=== PATIENT | female | born 1995 | race Caucasian/White ===

== ENCOUNTER 2017-04-02 13:59 | Emergency (ER) | payer MEDICAID ==
[~2017-04-02] VITALS: Ht 174 cm; Wt 89.0 kg
[~2017-04-02 13:59] MED LIST: DOCU-131 PO; IBUP200T48 PO; NORE0.3515 PO; ONDA4TAB7 PO; PNV1TABL11 PO
[2017-04-02 15:35] VITALS: BP 107/63
== END 2017-04-02 15:50 | disposition home or self-care (01) ==
LOC: ED 15:30
DX: O03.9 Complete or unspecified spontaneous abortion without complication (principal); O26.891 Other specified pregnancy related conditions, first trimester; N92.1 Excessive and frequent menstruation with irregular cycle; Z3A.08 8 weeks gestation of pregnancy
CPT/HCPCS: 36415; 76801; 81003; 84702; 86901; 99285

== ENCOUNTER 2018-04-23 21:14 | Emergency (ER) | payer MEDICAID ==
[~2018-04-23] VITALS: Ht 172.7 cm; Wt 84.0 kg
[~2018-04-23 21:14] MED LIST changes: -IBUP200T48 PO; +IBUP200T49 PO
[2018-04-23] MEDS ORDERED: ONDANSETRON ODT 4 MG ONE (21:43)
[2018-04-23] MEDS ORDERED: MAALOX/HYOSCYAMINE/LIDOCAINE 45 ML BTL ONE (21:44)
[2018-04-23] MEDS ORDERED: IBUPROFEN 200 MG TABLET ONE (21:44)
[2018-04-23] MEDS ORDERED: IBUPROFEN 200 MG TABLET PO ONE (22:00)
[2018-04-23] MEDS ORDERED: MAALOX/HYOSCYAMINE/LIDOCAINE 45 ML BTL PO ONE (22:00)
[2018-04-23] MEDS ORDERED: ONDANSETRON ODT 4 MG PO ONE (22:00)
[2018-04-23 22:32] LABS: BASOPHILS # (AUTO) 0.03 x10^3/uL (0-0.1); BASOPHILS % (AUTO) 0 % (0-1); EOSINOPHILS # (AUTO) 0.15 x10^3/uL (0-0.4); EOSINOPHILS % (AUTO) 2 % (1-7); LYMPHOCYTES # (AUTO) 3.31 x10^3/uL (1-3.4); LYMPHOCYTES % (AUTO) 34 % (22-44); MD NO; MEAN CORPUSCULAR HEMOGLOBIN 32.1 pg (27.0-34.8); MEAN CORPUSCULAR HGB CONC 34.2 g/dL (32.4-35.8); MEAN CORPUSCULAR VOLUME 93.7 fL (80-100); MEAN PLATELET VOLUME 8.7 fL (7.4-10.4); MONOCYTES # (AUTO) 0.47 x10^3/uL (0.2-0.8); MONOCYTES % (AUTO) 5 % (2-9); NEUTROPHILS % (AUTO) 59 % (42-75); PLATELET COUNT 267 x10^3/uL (130-400); RED BLOOD COUNT 4.12 x10^6/uL (3.82-5.3)
[2018-04-23 22:37] VITALS: BP 105/66
[2018-04-23 22:43] LABS: ALBUMIN 3.7 g/dL (3.4-5.0); ANION GAP 9 mmol/L (5-15); CALCIUM 9.1 mg/dL (8.5-10.1); CHLORIDE 106 mmol/L (98-107); CREATININE 0.74 mg/dL (0.55-1.02)
[2018-04-23 22:47] LABS: TROPONIN I < 0.015 ng/mL (0.000-0.045)
== END 2018-04-23 23:34 | disposition home or self-care (01) ==
LOC: ED 23:26
DX: R07.89 Other chest pain (principal); F41.1 Generalized anxiety disorder; R06.4 Hyperventilation; Z88.0 Allergy status to penicillin; Z91.013 Allergy to seafood
CPT/HCPCS: 36415; 71045; 80048; 82040; 83880; 84484; 84703; 85025; 93005; 99285; Q0162

== ENCOUNTER 2019-05-20 11:28 | Emergency (ER) | payer MEDICAID, OTHER ==
[~2019-05-20] VITALS: Ht 172.7 cm; Wt 74.7 kg
[2019-05-20 11:36] VITALS: BP 109/74
[2019-05-20] MEDS ORDERED: KETOROLAC 30 MG/1 ML ONE (12:06)
[2019-05-20] MEDS ORDERED: KETOROLAC 30 MG/1 ML IM ONE (12:30)
== END 2019-05-20 13:12 | disposition home or self-care (01) ==
LOC: ED 13:00
DX: S39.012A Strain of muscle, fascia and tendon of lower back, initial encounter (principal); G89.11 Acute pain due to trauma; R07.89 Other chest pain; V49.09XA Driver injured in collision with other motor vehicles in nontraffic accident, initial encounter; Y93.89 Activity, other specified; Y92.89 Other specified places as the place of occurrence of the external cause; Y99.8 Other external cause status
CPT/HCPCS: 72110; 96372; 99283; J1885

== ENCOUNTER 2020-07-20 18:57 | Emergency (ER) | payer MEDICAID, OTHER ==
[~2020-07-20] VITALS: Ht 172.7 cm; Wt 80.4 kg
[2020-07-20 19:01] VITALS: BP 108/87
[2020-07-20] MEDS ORDERED: LIDOCAINE-MPF 1%, 5ML ONE (19:22)
[2020-07-20] MEDS ORDERED: BUPIVACAINE 0.25% ONE (20:05)
[2020-07-20] MEDS ORDERED: NEOSPORIN OINT. PKT 1 PACKET ONE (21:19)
== END 2020-07-20 20:00 | disposition home or self-care (01) ==
LOC: ED 19:39
DX: S61.306A Unspecified open wound of right little finger with damage to nail, initial encounter (principal); G89.11 Acute pain due to trauma; M79.641 Pain in right hand; X58.XXXA Exposure to other specified factors, initial encounter; Y93.89 Activity, other specified; Y92.89 Other specified places as the place of occurrence of the external cause; Y99.8 Other external cause status
CPT/HCPCS: 11730; 99284

== ENCOUNTER 2020-10-18 11:33 | Emergency (ER) | payer MEDICAID ==
[~2020-10-18] VITALS: Ht 172.7 cm; Wt 79.0 kg
--- NOTE | 2020-10-18 12:02 | NUR ---
EPIGASTRIC ABD PAIN STARTING LAST NIGHT. DIZZINESS UPON STANDING. AT BEDSIDE. PT ATTACHED TO ALL MONITORS. VSS. LIMON.
--- NOTE | 2020-10-18 12:10 | NUR ---
DR. ODOM TO BEDSIDE FOR EVALUATION. PT BACK FROM BATHROOM WITH SLOW STEADY GAIT ASSISTED BY TECH AND . PT REPORTS DIZZINESS WHEN AMBULATION. ATTACHED TO MONITORS. VSS.
[2020-10-18 12:47] LABS: MICROSCOPIC NOT IND
[2020-10-18] MEDS ORDERED: MAALOX/HYOSCYAMINE/LIDOCAINE 45 ML BTL PO ONE (13:00)
[2020-10-18] MEDS ORDERED: MAALOX/HYOSCYAMINE/LIDOCAINE 45 ML BTL ONE (13:05)
--- NOTE | 2020-10-18 13:07 | NUR ---
Task RN: MD Myers back to bedside for reevaluation. Pt resting in bed, NADN.
[2020-10-18 13:10] LABS: BASOPHILS % (AUTO) 0 % (0-1); EOSINOPHILS % (AUTO) 3 % (1-7); LYMPHOCYTES % (AUTO) 28 % (22-44); MD NO; MEAN CORPUSCULAR HGB CONC 33.9 g/dL (32.4-35.8); MEAN PLATELET VOLUME 8.9 fL (7.4-10.4); MONOCYTES % (AUTO) 7 % (2-9); NEUTROPHILS % (AUTO) 61 % (42-75); PLATELET COUNT 248 x10^3/uL (130-400); RED BLOOD COUNT 4.39 x10^6/uL (3.82-5.3); RED CELL DISTRIBUTION WIDTH 13.1 % (9.6-15.2)
[2020-10-18 13:22] LABS: ALBUMIN 3.9 g/dL (3.4-5.0); ANION GAP 5 mmol/L (5-15); CHLORIDE 107 mmol/L (98-107)
[2020-10-18 13:28] LABS: ALANINE AMINOTRANSFERASE 18 U/L (12-78); ALKALINE PHOSPHATASE 84 U/L (45-117); BILIRUBIN,TOTAL 0.8 mg/dL (0.2-1.0); CREATININE 0.69 mg/dL (0.55-1.02); TOTAL PROTEIN 7.8 g/dL (6.4-8.2)
--- NOTE | 2020-10-18 13:59 | NUR ---
pt resting in bed with at bedside. vss. armijo. awaitng recheck from
--- NOTE | 2020-10-18 15:07 | NUR ---
PT TO CT
[2020-10-18] MEDS ORDERED: OMNIPAQUE 350 MG/ML, 100ML BOTTLE ONE (15:21)
[2020-10-18 15:54] VITALS: BP 100/68
== END 2020-10-18 16:12 | disposition home or self-care (01) ==
LOC: ED 16:05
DX: R10.13 Epigastric pain (principal)
CPT/HCPCS: 36415; 74177; 80053; 81003; 83690; 84703; 85025; 93005; 99285; Q9967

== ENCOUNTER 2021-01-22 10:59 | Emergency (ER) | payer MEDICAID ==
[~2021-01-22] VITALS: Ht 175.3 cm; Wt 79.0 kg
--- NOTE | 2021-01-22 11:37 | NUR ---
PT AMBULATED WITH STEADY GAIT TO ROOM 33. URINE COLLECTED AND SENT TO LAB. PT REPORT RIGHT LOWER ABD PAIN STARTING LAST NIGHT (SHARP) WITH AN INCREAS OF THIRST. PT IN BED IN GOWN WITH CONT SPO2, BP Q 30 MIN, SIDRAIS UP X2, CALL LIGHT IN REACH. NAD.
[2021-01-22 12:04] LABS: MICROSCOPIC INDICATED
[2021-01-22 12:51] LABS: BASOPHILS % (AUTO) 0 % (0-1); EOSINOPHILS % (AUTO) 1 % (1-7); LYMPHOCYTES % (AUTO) 32 % (22-44); MEAN CORPUSCULAR HGB CONC 34.4 g/dL (32.4-35.8); MEAN PLATELET VOLUME 8.6 fL (7.4-10.4); MONOCYTES % (AUTO) 5 % (2-9); NEUTROPHILS % (AUTO) 61 % (42-75); PLATELET COUNT 269 x10^3/uL (130-400); RED BLOOD COUNT 4.43 x10^6/uL (3.82-5.3); RED CELL DISTRIBUTION WIDTH 13.1 % (9.6-15.2)
[2021-01-22 13:03] LABS: ALANINE AMINOTRANSFERASE 17 U/L (12-78); ALBUMIN 4.1 g/dL (3.4-5.0); ANION GAP 4 mmol/L (5-15); CALCIUM 9.2 mg/dL (8.5-10.1); CHLORIDE 106 mmol/L (98-107); CREATININE 0.74 mg/dL (0.55-1.02)
[2021-01-22 13:06] LABS: ALKALINE PHOSPHATASE 83 U/L (45-117); BILIRUBIN,TOTAL 0.8 mg/dL (0.2-1.0); TOTAL PROTEIN 8.4 g/dL (6.4-8.2)
--- NOTE | 2021-01-22 14:09 | NUR ---
US IN ROOM
--- NOTE | 2021-01-22 14:59 | NUR ---
FIRST CONTACT. LAUIRE GAR IS DISCHARGING THE PT. FOR THE PRIMARY CARE RN MATTHEW. PT. WAS GIVEN DISCHARGE INSTRUCTIONS AND SCRIPTS WITH UNDERSTANDING VERBALIZED ALONG WITH WILLINGNESS TO COMPLY. PT. WAS AMBULATORY TO THE DISCHARGE DESK. VSS.
[2021-01-22 15:02] VITALS: BP 103/64
== END 2021-01-22 15:05 | disposition home or self-care (01) ==
LOC: ED 11:50
DX: R10.31 Right lower quadrant pain (principal)
CPT/HCPCS: 36415; 76830; 80053; 81001; 83690; 85025; 87086; 99284

== ENCOUNTER 2021-01-31 16:14 | Emergency (ER) | payer MEDICAID ==
[~2021-01-31] VITALS: Ht 175.3 cm; Wt 79.8 kg
[2021-01-31 16:18] VITALS: BP 115/73
[2021-01-31] MEDS ORDERED: BACITRACIN ZINC OINT 500U/GM, 0.9 GM ONE (16:41)
[2021-01-31] MEDS ORDERED: LIDOCAINE-MPF 1%, 5ML ONE (16:41)
[2021-01-31] MEDS ORDERED: DIPH,PERTUSS(ACELL),TET VAC/PF 0.5 ML IM-VACC ONE ×2 (16:41→17:30)
--- NOTE | 2021-01-31 17:18 | NUR ---
Patient/Caregiver given discharge instructions and they have confirmed that they understand the instructions. Patient ambulatory with steady gait. NAD, all questions answered appropriately, denies additional needs at this time. No personal belongings left in room after discharge.
[2021-01-31] MEDS ORDERED: LIDOCAINE-MPF 1%, 5ML INFIL ONE (17:30)
== END 2021-01-31 17:20 | disposition home or self-care (01) ==
LOC: ED 16:55
DX: S61.213A Laceration without foreign body of left middle finger without damage to nail, initial encounter (principal); W45.8XXA Other foreign body or object entering through skin, initial encounter; Y93.89 Activity, other specified; Y92.69 Other specified industrial and construction area as the place of occurrence of the external cause; Y99.8 Other external cause status
CPT/HCPCS: 12001; 90471; 90715; 99283

== ENCOUNTER 2021-02-21 21:14 | Emergency (ER) | payer MEDICAID ==
[~2021-02-21] VITALS: Ht 172.7 cm; Wt 79.4 kg
--- NOTE | 2021-02-22 00:15 | NUR ---
bilingual teacher aide: patient to room from lobby.
--- NOTE | 2021-02-22 00:40 | NUR ---
PT C/O OF RIGHT SIDED HEADACHE AND NAUEA WHEN STANDING UP. PT RPEORTS ABDMONIAL PAIN AND DECREASED APPETITE. ATTACGHED TO MONITORS, VSS, NADN. BED IN LOW, RIALS ENGAGED, CALL LIGHT ON LAP.
[2021-02-22 00:43] VITALS: BP 103/60
[2021-02-22] MEDS ORDERED: ACETAMINOPHEN 500 MG TABLET ONE (00:47)
[2021-02-22] MEDS ORDERED: PROMETHAZINE 25MG TABLET ONE (00:47)
[2021-02-22] MEDS ORDERED: PROMETHAZINE 25MG TABLET PO PRN (01:00)
[2021-02-22] MEDS ORDERED: ACETAMINOPHEN 500 MG TABLET PO ONE (01:00)
== END 2021-02-22 01:18 ==
LOC: ED 23:59
DX: S06.0X0A Concussion without loss of consciousness, initial encounter (principal); S00.11XA Contusion of right eyelid and periocular area, initial encounter; W22.8XXA Striking against or struck by other objects, initial encounter; Y93.89 Activity, other specified; Y92.009 Unspecified place in unspecified non-institutional (private) residence as the place of occurrence of the external cause; Y99.8 Other external cause status
CPT/HCPCS: 70450; 70486; 99285; Q0169